=== PATIENT | female | born 1990 | race Caucasian/White ===

== ENCOUNTER → 2017-02-06 | Outpatient (CLI) | payer BC ==
--- NOTE | 2017-02-06 17:18 | US ---
EXAMINATION TYPE: US OB >= 14 wk fetus DATE OF EXAM: 02/06/2017 5:07 PM COMPARISON: None no prior CLINICAL HISTORY: Small for dates O36.5930 TECHNIQUE: Transabdominal (TA) GESTATIONAL AGE / DATING Physician Established: no established Dates by LMP: unsure Dates by First Scan: (37 weeks/2 days) dr manley, [facility] scan 2 weeks ago showed 2 w smaller than EDC EDC: 02/25/2017 Dates by Current Scan: (34 weeks/4 days) EDC: 03/16/2017 SURVEY IUP: Single PLACENTA: Anterior PREVIA: No Previa LEV: 20 cm Normal CERVICAL LENGTH (transabdominal: norm > 3.0cm): 3.7 cm BIOMETRY PRESENTATION: Breech LIE: Longitudinal BPD: 8.6 cm 34 weeks / 6 days HC: 31.2 cm 34 weeks / 6 days AC: 31.4 cm 35 weeks / 2 days FL: 6.8 cm 34 weeks / 5 days ESTIMATED WEIGHT IN GRAMS: 2582 grams ESTIMATED WEIGHT IN LBS/OZS: 5 lbs. 11 oz. WEIGHT PERCENTAGE BASED ON ESTABLISHED DATES: 9.8% HC/AC: 1.0 Normal FL/AC: 21 Normal HEART RATE: 138 bpm RHYTHM: Normal ANATOMY SEEN (within normal limits): Four Chamber Heart Stomach Situs Nose / Lips Diaphragm Kidneys (bilateral) Bladder Cord Insert Three Vessel Cord Longitudinal Spine Transverse Spine Arms (bilateral) Legs (bilateral) anatomy not seen : Pt 35 weeks crowded * Lateral Vent (< 1 cm) * Cisterna Magna (< 1.1 cm) * Nuchal Fold (< 0.6 cm) * Cerebellum (varies with age) Choroid Plexus (bilateral) Midline Falx Cavus Septi Pellucidi Outflow tracts:? LVOT/RVOT TECHNOLOGIST IMPRESSION: viable IUP 34/4 days , dr manley early scan 37/[address] menezes baby has grown since [facility] scan 2weeks ago. he spoke to pt documented in notes IMPRESSION: I have no old exam to compare. The ultrasound gestational age is 34 weeks 4 days and the estimated fe jason weight is 2582 g. I see no complicating process.
== END | disposition home or self-care (01) ==
LOC: RADUSWWP 16:08
PROVIDERS: ATTEND Obstetrics & Gynecology
DX: O36.5930 Maternal care for other known or suspected poor fetal growth, third trimester, not applicable or unspecified (principal); Z3A.34 34 weeks gestation of pregnancy
CPT/HCPCS: 76811

== ENCOUNTER 2017-02-18 05:47 | Inpatient (IN) | payer BC ==
[2017-02-18] MEDS ORDERED: CARBOPROST TROMETHAMINE 250 MCG/ML 1 ML AMP IM PRN (06:02)
[2017-02-18] MEDS ORDERED: TERBUTALINE 1 MG/ML VIAL SQ PRN (06:02)
[2017-02-18] MEDS ORDERED: METHYLERGONOVINE 0.2 MG/ML 1 ML AMP IM PRN (06:02)
[2017-02-18] MEDS ORDERED: LIDOCAINE 1% (PF) 10 MG/ML (30 ML SDV) SQ PRN (06:02)
[2017-02-18] MEDS ORDERED: OXYTOCIN 10 UNIT/ML 1 ML VIAL IM PRN (06:02)
[2017-02-18] MEDS ORDERED: OXYTOCIN 30 UNITS/500 ML NS 30 UNIT in SALINE 1 500ML.BAG IV SCH ×2 (06:02→19:08)
--- NOTE | 2017-02-18 06:10 | P.HPOB ---
History of Present Illness H&P Date: 02/18/17 Chief Complaint: Patient is presenting for induction secondary to small for gestational age This patient is a pleasant 26-year-old 1 para 0 female estimated date of confinement 02/25/2017 estimated gestational age 39-0/7 weeks who presents to labor and delivery for induction of labor secondary to small for gestational age. Patient's had serial ultrasounds and there was concern of growth however she has had interval growth with normal amniotic fluid index. Patient' s had nonstress testing for this reason and is now at 39 weeks and requests induction which I feel is appropriate. Patient's care has otherwise been uncomplicated. Review of Systems Constitutional: Denies chills, Denies fever Ears, nose, mouth and throat: Denies headache, Denies sore throat Cardiovascular: Denies chest pain, Denies shortness of breath Respiratory: Denies cough Gastrointestinal: Reports heartburn Genitourinary: Reports Menstruation: Reports amenorrhea Musculoskeletal: Denies myalgias Integumentary: Denies pruritus, Denies rash Neurological: Denies numbness, Denies weakness Psychiatric: Denies anxiety, Denies depression Endocrine: Denies fatigue, Denies weight change Past Medical History Past Medical History: No Reported History History of Any Multi-Drug Resistant Organisms: None Reported Additional Past Surgical History / Comment(s): [place] tooth extraction Past Anesthesia/Blood Transfusion Reactions: No Reported Reaction Past Psychological History: No Psychological Hx Reported Smoking Status: Never smoker Past Alcohol Use History: None Reported Past Drug Use History: None Reported Medications and Allergies Home Medications Medication Instructions Recorded Confirmed Type Pnv with Ca,No.72/Iron/FA 1 tab PO DAILY 02/18/17 02/18/17 History [ Plus Tablet] Allergies Allergy/AdvReac Type Severity Reaction Status Date / Time No Known Allergies Allergy Verified 02/18/17 06:01 Exam - Vital Signs Vital signs: Intake and Output 02/17/17 02/17/17 02/18/17 14:59 22:59 06:59 Other: Weight 72.575 kg Patient Weight 02/18/17 06:59 Weight 72.575 kg - OBG Physical Exam Abdomen: bowel sounds normal, no diffuse tenderness, no bruit present, no guarding noted, no hepatomegaly, no splenomegaly, no mass Vulva: both: normal Vagina: normal moisture, no discharge Cervix: no lesion (Cervix is 2 cm dilated in the office and soft.), no discharge Uterus: enlarged (Fundal height is 39 cm) Results blood work shows she is O positive, rubella nonimmune, RPR nonreactive , HIV nonreactive, hepatitis B-, Glucola was normal, group B strep was negative , ultrasounds showed growth anywhere from the 11th to the 25th percentile with normal LEV. Assessment and Plan (1) Third trimester Narrative/Plan: This is a pleasant 26-year-old 1 para 0 female 39-0/7 weeks gestation with a small for gestational age fetus who is at 39 weeks requesting induction of labor. Although I do not think there is indications for intrauterine growth restriction I believe is appropriate proceed with delivery at this time. Plan is to proceed with induction of labor and anticipate vaginal delivery. Status: Acute (2) Small for gestational age fetus Status: Acute
[2017-02-18] MEDS: LACTATED RINGERS 1,000 ML IV SCH ×3 (06:18→15:38)
[2017-02-18 06:36] LABS: CH 27.6; CHCM 32.4; HCT 31.6 % (34.0-46.0); HDW 3.59; Hypochromasia Slight; Large Platelets Flag Slight; MCH 27.3 pg (25.0-35.0); MCHC 31.7 g/dL (31.0-37.0); MCV 85.9 fL (80.0-100.0); Mean Platelet Volume 11.7; Poikilocytosis Slight; RBC 3.68 m/uL (3.80-5.40); RDW 15.9 % (11.5-15.5); WBC (Perox) 7.45
[2017-02-18 07:17] LABS: Add Differential Manual Differential
[2017-02-18 07:18] LABS: Manual Review Performed
[2017-02-18] MEDS ORDERED: fentaNYL (PF) 50 MCG/ML 5 ML AMP ONE (10:37)
[2017-02-18] MEDS ORDERED: SODIUM CHLORIDE 0.9% 100 ML BAG ONE (10:37)
[2017-02-18] MEDS ORDERED: BUPIVACAINE (PF) 0.25% 30 ML VIAL ONE (10:37)
[2017-02-18] MEDS ORDERED: diphenhydrAMINE 50 MG/ML 1 ML VIAL IVP PRN (19:08)
[2017-02-18] MEDS ORDERED: diphenhydrAMINE 25 MG CAP PO PRN (19:08)
[2017-02-18] MEDS ORDERED: ZOLPIDEM 5 MG TAB PO PRN (19:08)
[2017-02-18] MEDS ORDERED: ACETAMINOPHEN TAB 325 MG TAB PO PRN (19:08)
[2017-02-18] MEDS ORDERED: Acetaminophen-Codeine 300-30mg TAB PO PRN ×2 (19:08)
[2017-02-18] MEDS ORDERED: WITCH HAZEL 1 EACH MED..PAD TOPICAL PRN (19:08)
[2017-02-18] MEDS ORDERED: MEASLES-MUMPS-RUBELLA VACC/PF 12,500 UNIT/0.5 ML VIAL SQ ONE (19:08)
[2017-02-18] MEDS ORDERED: LANOLIN CREAM 5 GM TUBE TOPICAL PRN (19:08)
[2017-02-18] MEDS ORDERED: SIMETHICONE 80 MG CHEWABLE PO PRN (19:08)
[2017-02-18] MEDS ORDERED: BISACODYL 10 MG SUPP RECTAL PRN (19:08)
[2017-02-18] MEDS ORDERED: BENZOCAINE/MENTHOL SPRAY 1 GM/SPRAY AEROSOL TOPICAL PRN (19:08)
[2017-02-18] MEDS ORDERED: HYDROCORTISONE 2.5% RECTAL CREAM 30 GM TUBE RECTAL PRN (19:08)
--- NOTE | 2017-02-18 19:27 | P.PROBDLV ---
Vaginal Delivery Note - . Vaginal Delivery Note: Normal vaginal delivery viable female Apgars 9 and 9 delivery time is 1851 hrs. Please see dictated H&P for intimate details of this patient's admission. In brief summary this is a pleasant 26-year-old 1 para 0 female estimated gestational age 39 weeks who presented this morning for induction of labor secondary to suspicion of SGA based on ultrasound. Patient is admitted she's to [place] dilated has artificial rupture membranes for clear fluid. Labor is induced with Pitocin and she progresses and does get an epidural for pain control. Patient gets to complete but has no urge to push and therefore the epidural shot off. Approximately 30-45 minutes later the patient does feel the urge to push and begins pushing. Patient pushes the head to the perineum. Posterior perineum is infiltrated with 1% lidocaine and a midline episiotomy is made. At this time and mother pushes the head over the perineum and there is a hand presenting, the right one, with the head. With maternal effort gently she delivers the posterior hand and shoulder and then the anterior shoulder and the rest of this infant's body. This is a vigorous viable female infant Apgars are 9 and 9 delivery time is 1845 hrs. After delivery of the the umbilical cord is doubly clamped and cut and appears to be trivascular. The placenta spontaneously delivered intact. Inspection of the perineum shows bilateral vaginal sulcus tears with avulsion of the vagina in the midline. At this time I placed a sponge and retractor to better visualize the lacerations. I reapproximate both vaginal lacerations with a 3-0 running locked suture. Good reapproximation is noted. Rest of the second-degree laceration is repaired with 3-0 Vicryl running fashion as well. I did have to excise some of the vaginal tissue that was avulsed. Again this was reapproximated as best as possible using 3-0 Vicryl. Final inspection does show good hemostasis and excellent reapproximation. All counts are correct 3. There are no complications other than the sulcus tears. and mother stable delivery room.
[2017-02-18] MEDS: SENNOSIDES-DOCUSATE SODIUM 1 EACH TAB PO SCH (20:52)
[2017-02-19] MEDS: IBUPROFEN 600 MG TAB PO PRN ×3 (00:16→19:25)
--- NOTE | 2017-02-19 07:16 | P.PNOBGVD ---
Subjective - Subjective Patient reports: Reports appetite normal, Reports voiding normally, Reports pain well controlled, Reports ambulating normally : doing well Objective - Latest Vital Signs Latest vital signs: Vital Signs Temp Pulse Resp BP Pulse Ox 02/19/17 04:00 98.1 F 74 18 105/64 100 02/19/17 00:00 98.5 F 96 17 115/74 98 02/18/17 21:13 99.0 F 104 H 16 111/60 02/18/17 20:43 99.2 F 104 H 16 102/60 02/18/17 20:13 104 H 111/60 02/18/17 19:58 98.9 F 111 H 16 119/65 02/18/17 19:43 102 H 16 111/58 02/18/17 19:28 109 H 16 119/68 02/18/17 19:13 99.8 F H 116 H 16 131/70 Intake and Output 02/18/17 02/19/17 02/19/17 22:59 06:59 14:59 Intake Total 1050 Balance 1050 Intake: IV 600 Lactated Ringers 1,000 ml 600 @ 125 mls/hr IV .Q8H LULU Rx#:[id number] Intake, IV Titration 450 Amount Oxytocin 30 Units/500 ml 450 Ns 30 unit In Saline 1 500ml.bag @ 120 MILLIUNIT /MIN 120 mls/hr IV . Q4H10M LULU Rx#:[id number] Other: # Voids 1 1 - Exam Lungs: bilateral: normal Chest: Normal S1, Normal S2 Extremities: Present: normal Abdomen: Present: normal appearance, soft Uterus: Present: normal, firm - Labs Labs: Abnormal Lab Results - Last 24 Hours (Table) 02/18/17 Range/Units 06:22 RBC 3.68 L (3.80-5.40) m/uL Hgb 10.0 L (11.4-16.0) gm/dL Hct 31.6 L (34.0-46.0) % RDW 15.9 H (11.5-15.5) % Assessment and Plan (1) Third trimester Narrative/Plan: day 1. Patient is resting without new complaints. Vital signs are stable she is afebrile, her uterus is firm nontender she's having normal lochia. My impression this is a normal course. Plan is to continue routine care discharge home tomorrow. Current Visit: Yes Status: Acute Code(s): Z33.1 - STATE, INCIDENTAL SNOMED Code(s): 71695704 (2) Small for gestational age fetus Current Visit: Yes Status: Acute Code(s): NNX5145 - SNOMED Code(s): 897070003
[2017-02-19] MEDS: SENNOSIDES-DOCUSATE SODIUM 1 EACH TAB PO SCH ×2 (09:25→19:25)
--- NOTE | 2017-02-20 05:59 | P.PNOBGVD ---
Subjective - Subjective Patient reports: Reports appetite normal, Reports voiding normally, Reports pain well controlled, Reports ambulating normally : doing well Objective - Latest Vital Signs Latest vital signs: Vital Signs Temp Pulse Resp BP Pulse Ox 02/20/17 04:00 98.3 F 80 16 108/65 100 02/19/17 20:00 97.3 F L 87 17 115/74 99 02/19/17 16:00 98.1 F 79 16 100/61 02/19/17 12:00 98.1 F 82 16 108/61 98 02/19/17 08:00 98.2 F 78 14 114/55 100 Intake and Output 02/19/17 02/19/17 02/20/17 14:59 22:59 06:59 Intake Total 600 Balance 600 Intake: Oral 600 Other: # Voids 3 # Bowel Movements 0 - Exam Lungs: bilateral: normal Chest: Normal S1, Normal S2 Extremities: Present: normal Abdomen: Present: normal appearance, soft Uterus: Present: normal, firm Assessment and Plan (1) Third trimester Narrative/Plan: day #2. Patient is resting without complaints. She wishes to go home. Vital signs are stable she is afebrile. Uterus is firm nontender she's having normal lochia. My impression is this is a normal course. Plan is to continue routine care and discharge home today. Current Visit: Yes Status: Acute Code(s): Z33.1 - STATE, INCIDENTAL SNOMED Code(s): 52027967 (2) Small for gestational age fetus Current Visit: Yes Status: Acute Code(s): HAY0185 - SNOMED Code(s): 821030990
--- NOTE | 2017-02-20 06:05 | P.DS ---
Providers Date of admission: 02/18/17 05:47 Expected date of discharge: 02/20/17 Attending physician: Jemal Galeano Primary care physician: Stated None - Discharge Diagnosis(es) (1) Third trimester Current Visit: Yes Status: Acute (2) Small for gestational age fetus Current Visit: Yes Status: Acute Hospital Course: Please see dictated H&P for intimate details of this patient's admission. Brief summary this is a pleasant 26-year-old 1 para 0 female 39 weeks who is admitted to labor and delivery for concerns a small for gestational age an induction of labor. Patient is admitted she is uncomplicated induction of labor was on have a vaginal delivery viable female . Please see dictated delivery note. day #1 patient is doing well and by 2 she continues to well was thought to be stable for discharge home follow up with me in 6 weeks. Procedures: Normal vaginal delivery Patient Condition at Discharge: Good Plan - Discharge Summary New Discharge Prescriptions: Acetaminophen-Codeine 300-30mg [Tylenol w/codeine #3] 1 - 2 each PO Q4HR PRN # 30 tab PRN Reason: Mild Pain exceeding Tylenol Ibuprofen [Motrin] 600 mg PO Q6HR PRN #40 tab PRN Reason: Mild Pain Or Fever >= 100.5 Discharge Medication List Pnv with Ca,No.72/Iron/FA [ Plus Tablet] 1 tab PO DAILY 02/18/17 [ History] Acetaminophen-Codeine 300-30mg [Tylenol w/codeine #3] 1 - 2 each PO Q4HR PRN # 30 tab 02/20/17 [Rx] Ibuprofen [Motrin] 600 mg PO Q6HR PRN #40 tab 02/20/17 [Rx] Follow up Appointment(s)/Referral(s): Jemal Galeano MD [STAFF PHYSICIAN] - 6 Weeks Patient Instructions/Handouts: Vaginal Delivery (DC) Activity/Diet/Wound Care/Special Instructions: No intercourse or anything per vagina for 6 weeks. Please call if any fever, chills, excessive vaginal bleeding, and/or abdominal pain. Discharge Disposition: HOME SELF-CARE
[2017-02-20 08:24] VITALS: BP 103/65; PULSE 81; RESP 18; TEMP 98.1
[2017-02-20] MEDS: IBUPROFEN 600 MG TAB PO PRN (08:55)
[2017-02-20] MEDS: SENNOSIDES-DOCUSATE SODIUM 1 EACH TAB PO SCH (08:56)
== END 2017-02-20 09:00 | disposition home or self-care (01) | DRG 775 ==
LOC: 4FBP 05:47
PROVIDERS: ADMIT Obstetrics & Gynecology; ATTEND Obstetrics & Gynecology
PROC: 3E0R3CZ (ICD-10-PCS; principal; 2017-02-18)
PROC: 3E033VJ Introduction of Other Hormone into Peripheral Vein, Percutaneous Approach (ICD-10-PCS; principal; 2017-02-18)
PROC: 00HU33Z Insertion of Infusion Device into Spinal Canal, Percutaneous Approach (ICD-10-PCS; principal; 2017-02-18)
PROC: 10907ZC Drainage of Amniotic Fluid, Therapeutic from Products of Conception, Via Natural or Artificial Opening (ICD-10-PCS; principal; 2017-02-18)
PROC: 0W8NXZZ Division of Female Perineum, External Approach (ICD-10-PCS; principal; 2017-02-18)
PROC: 10E0XZZ Delivery of Products of Conception, External Approach (ICD-10-PCS; principal; 2017-02-18)
DX: O36.5930 Maternal care for other known or suspected poor fetal growth, third trimester, not applicable or unspecified (principal); O70.1 Second degree perineal laceration during delivery; Z37.0 Single live birth; Z3A.39 39 weeks gestation of pregnancy
CPT/HCPCS: 85025; 88307

== ENCOUNTER → 2020-07-20 | Outpatient (CLI) | payer OTHER ==
[2020-07-20 10:30] LABS: HCT 30.7 % (34.0-46.0); HGB 10.1 gm/dL (11.4-16.0); Hypochromasia Slight; MCH 30.5 pg (25.0-35.0); MCHC 32.9 g/dL (31.0-37.0); MCV 92.7 fL (80.0-100.0); Mean Platelet Volume 8.2; Platelet Count 213 k/uL (150-450); RBC 3.32 m/uL (3.80-5.40); RDW 14.3 % (11.5-15.5); WBC 7.1 k/uL (3.8-10.6)
== END | disposition home or self-care (01) ==
LOC: LABWHC1 08:41
PROVIDERS: ATTEND Obstetrics & Gynecology
DX: Z34.82 Encounter for supervision of other normal pregnancy, second trimester (principal); Z3A.00 Weeks of gestation of pregnancy not specified
CPT/HCPCS: 36415; 82950; 85027

== ENCOUNTER → 2020-07-24 | Outpatient (CLI) | payer OTHER ==
[2020-07-24 12:07] LABS: Glucose 3 Hour, Gest 115 mg/dL
== END | disposition home or self-care (01) ==
LOC: LABWHC1 07:35
PROVIDERS: ATTEND Obstetrics & Gynecology
DX: O24.419 Gestational diabetes mellitus in pregnancy, unspecified control (principal); Z3A.00 Weeks of gestation of pregnancy not specified
CPT/HCPCS: 36415; 82951; 82952

== ENCOUNTER 2020-10-29 14:03 | Inpatient (IN) | payer OTHER ==
[2020-10-29] MEDS ORDERED: LIDOCAINE 0.5% (PF) 5 MG/ML (50 ML SDV) SQ PRN (14:45)
[2020-10-29] MEDS ORDERED: METHYLERGONOVINE 0.2 MG/ML 1 ML AMP IM PRN (14:45)
[2020-10-29] MEDS ORDERED: TERBUTALINE 1 MG/ML VIAL SQ PRN (14:45)
[2020-10-29] MEDS ORDERED: OXYTOCIN 10 UNIT/ML 1 ML VIAL IM PRN (14:45)
[2020-10-29] MEDS ORDERED: CARBOPROST TROMETHAMINE 250 MCG/ML 1 ML AMP IM PRN (14:45)
--- NOTE | 2020-10-29 15:03 | P.HPOB ---
History of Present Illness H&P Date: 10/29/20 Chief Complaint: Contractions This is a 30-year-old female 2 para 1 with an estimated date of confinement of 10/30/2020, estimated gestational age of 39-6/7 weeks, who presents to labor and delivery with complaints of contractions that began earlier today and became stronger and more regular. She denies any rupture membranes. care has been with Dr. Galeano and has been uncomplicated per patient. labs: Pap smear-within normal limits GC/chlamydia/Trichomonas-negative Hepatitis B surface antigen-negative RPR-nonreactive Rubella-nonimmune Blood type-O+ Antibody screen-negative HIV-nonreactive Hemoglobin-12.1 Random glucose-83 Obstetrical ultrasound-normal anatomy One hour Glucola-142, 3 hour Glucola-within normal limits Group B streptococcus-negative Obstetrical history: . History of 1 vaginal delivery at term with no complications Review of Systems Constitutional: Denies chills, Denies fever Eyes: denies blurred vision, denies pain Ears, nose, mouth and throat: Denies headache, Denies sore throat Cardiovascular: Denies chest pain, Denies shortness of breath Respiratory: Denies cough Gastrointestinal: Reports abdominal pain (Contractions) Genitourinary: Reports pelvic pain Musculoskeletal: Reports low back pain Integumentary: Denies pruritus, Denies rash Neurological: Denies numbness, Denies weakness Psychiatric: Denies anxiety, Denies depression Past Medical History Past Medical History: No Reported History History of Any Multi-Drug Resistant Organisms: None Reported Additional Past Surgical History / Comment(s): [place] tooth extraction Past Anesthesia/Blood Transfusion Reactions: No Reported Reaction Past Psychological History: No Psychological Hx Reported Smoking Status: Never smoker Past Alcohol Use History: None Reported Past Drug Use History: None Reported - Past Family History Father Family Medical History: Hypertension Medications and Allergies Home Medications Medication Instructions Recorded Confirmed Type Pnv,Calcium 72/Iron/Folic Acid 1 tab PO DAILY 02/18/17 02/18/17 History [ Plus Tablet] Allergies Allergy/AdvReac Type Severity Reaction Status Date / Time No Known Allergies Allergy Verified 02/18/17 06:01 Exam Osteopathic Statement: *. No significant issues noted on an osteopathic structural exam other than those noted in the History and Physical/Consult. Intake and Output 10/28/20 10/29/20 10/29/20 22:59 06:59 14:59 Other: Weight 72.575 kg HEENT: Within normal limits Heart: Regular rate and rhythm Lungs: Clear to auscultation bilaterally Abdomen: , nontender Cervix: 6-1/2 cm/90%/-2 station Heart tones: Category 1 Contractions: Every 2-3 minutes Extremities: Negative Homans Assessment and Plan (1) 39 weeks gestation of Current Visit: Yes Status: Acute Code(s): Z3A.39 - 39 WEEKS GESTATION OF SNOMED Code(s): 44786593 Plan: Admission for active labor. Epidural anesthesia if desired. Expectant management.
--- NOTE | 2020-10-29 15:03 | P.MSEPDOC ---
Presenting Problems - Arrival Data Date of Arrival on Unit: 10/29/20 Time of Arrival on Unit: 14:30 Mode of Transport: Ambulatory Vital Signs - Temperature Temperature: 97.8 F Temperature Source: Temporal Artery Scan - Respirations Respiratory Rate: 16 Oxygen Delivery Method: Room Air Disposition - Disposition OB Disposition: Admit I agree with the RN Medical Screening Exam: Yes Risk & Benefit of care provided described in d/c instruction: Yes Diagnosis: ENCOUNTER FOR FULL-TERM UNCOMPLICATED DELIVERY
[2020-10-29] MEDS: LACTATED RINGERS 1,000 ML IV SCH ×2 (15:06→16:15)
[2020-10-29] MEDS ORDERED: ROPIVACAINE 5MG/ML 20ML VIAL ONE (15:11)
[2020-10-29] MEDS ORDERED: fentaNYL (PF) 50 MCG/ML 5 ML AMP ONE (15:11)
[2020-10-29] MEDS ORDERED: SODIUM CHLORIDE 0.9% 100 ML BAG ONE (15:11)
[2020-10-29] MEDS ORDERED: ROPIVACAINE 100 MG, fentaNYL (PF) 200 MCG in SODIUM CHLORIDE 0.9% 76 ML EPIDURAL ONE (15:34)
[2020-10-29 15:51] LABS: Anisocytosis Slight; Basophils % (A) 0 %; Eosinophils % (A) 0 %; HCT 31.9 % (34.0-46.0); Hypochromasia Marked; Lymphocytes # (A) 2.2 k/uL (1.0-4.8); Lymphocytes % (A) 25 %; MCH 25.6 pg (25.0-35.0); MCHC 31.3 g/dL (31.0-37.0); MCV 81.8 fL (80.0-100.0); Mean Platelet Volume 11.5; Monocytes # (A) 0.4 k/uL (0-1.0); Monocytes % (A) 4 %; Neutrophils # (A) 6.3 k/uL (1.3-7.7); Platelet Count 214 k/uL (150-450); Poikilocytosis Slight; RDW 16.1 % (11.5-15.5); WBC 9.1 k/uL (3.8-10.6)
--- NOTE | 2020-10-29 20:58 | P.PROBDLV ---
Vaginal Delivery Note - . Vaginal Delivery Note: The patient regressed to complete dilation after artificial rupture membranes with clear fluid noted and epidural. Once reaching complete, she began pushing. She pushed for approximately an hour and a half and infant's head came to a crown. With one further push, the 's head delivered across the perineum followed by the anterior shoulder. Nose and mouth were bulb suctioned at the perineum. With one further push, the remainder the easily delivered and was placed on mother's abdomen. Cord was clamped and cut and was taken to warmer for evaluation. A viable female infant was noted with scores of 9 at 1 minute and 9 at 5 minutes and infant weight was 8 lbs. 7 oz. Placenta delivered shortly thereafter, intact, with a three-vessel cord. Uterus contracted fairly well after oxytocin was given and uterine massage was carried out. A gloved hand was placed within the uterine cavity to remove a few clots but no further tissue was obtained. Next inspection of the perineum revealed a small second-degree perineal laceration and a right periurethral laceration. These areas were anesthetized with 1% lidocaine and then sutured with 3-0 Vicryl suture in the usual fashion. Estimated blood loss is approximately 200 mL's. Both mother and infant are in stable condition.
[2020-10-29] MEDS ORDERED: IBUPROFEN 600 MG TAB PO PRN (21:10)
[2020-10-29] MEDS ORDERED: SIMETHICONE 80 MG CHEWABLE PO PRN (21:10)
[2020-10-29] MEDS ORDERED: OXYTOCIN 20 UNITS/1000 ML NS 1,000 ML IV SCH (21:10)
[2020-10-29] MEDS ORDERED: LANOLIN CREAM 5 GM TUBE TOPICAL PRN (21:10)
[2020-10-29] MEDS ORDERED: diphenhydrAMINE 25 MG CAP PO PRN (21:10)
[2020-10-29] MEDS ORDERED: ZOLPIDEM 5 MG TAB PO PRN (21:10)
[2020-10-29] MEDS ORDERED: diphenhydrAMINE 50 MG/ML 1 ML VIAL IVP PRN ×2 (21:10)
[2020-10-29] MEDS ORDERED: HYDROCORTISONE 2.5% RECTAL CREAM 30 GM TUBE RECTAL PRN (21:10)
[2020-10-29] MEDS ORDERED: diphenhydrAMINE 50 MG CAP PO PRN (21:10)
[2020-10-29] MEDS ORDERED: ACETAMINOPHEN TAB 325 MG TAB PO PRN (21:10)
[2020-10-29] MEDS ORDERED: BENZOCAINE/MENTHOL SPRAY 1 GM/SPRAY AEROSOL TOPICAL PRN (21:10)
[2020-10-29] MEDS: SENNOSIDES-DOCUSATE SODIUM 1 EACH TAB PO SCH (21:55)
[2020-10-30 05:12] VITALS: RESP 16
--- NOTE | 2020-10-30 05:55 | P.PNOBGVD ---
Subjective - Subjective Patient reports: Reports appetite normal, Reports voiding normally, Reports pain well controlled, Reports ambulating normally : doing well Objective - Latest Vital Signs Latest vital signs: Vital Signs Temp Pulse Resp BP Pulse Ox 10/30/20 04:00 98.6 F 99 16 121/78 97 10/30/20 00:00 98.8 F 86 15 117/71 98 10/29/20 22:45 98.3 F 96 16 103/63 10/29/20 22:15 98.5 F 86 16 107/68 10/29/20 21:45 98.6 F 107 H 16 97/64 10/29/20 21:30 99.1 F 120 H 16 105/65 98 10/29/20 21:15 98.5 F 110 H 16 112/58 10/29/20 21:00 97.6 F 109 H 16 131/73 10/29/20 20:45 110 H 16 114/53 10/29/20 15:03 97.8 F 16 10/29/20 14:44 97.8 F 100 16 118/74 10/29/20 14:08 97.9 F 100 14 118/74 Intake and Output 10/29/20 10/29/20 10/30/20 14:59 22:59 06:59 Output Total 200 Balance -200 Output: Estimated Blood Loss 200 Other: # Voids 1 0 Weight 72.575 kg - Exam Lungs: bilateral: normal Chest: Normal S1, Normal S2 Extremities: Present: normal Abdomen: Present: normal appearance, soft Uterus: Present: normal, firm - Labs Labs: Abnormal Lab Results - Last 24 Hours (Table) 10/29/20 Range/Units 14:48 Hgb 10.0 L (11.4-16.0) gm/dL Hct 31.9 L (34.0-46.0) % RDW 16.1 H (11.5-15.5) % Assessment and Plan Assessment: day #1. Patient is resting without complaints and wishes to go home. Vital signs are stable she's afebrile. Uterus is firm nontender and she is having normal lochia. My impression this is a normal course. Plan is to continue routine care discharge home later today. (1) Normal vaginal delivery Current Visit: Yes Status: Acute Code(s): O80 - ENCOUNTER FOR FULL-TERM UNCOMPLICATED DELIVERY SNOMED Code(s): 37347489
--- NOTE | 2020-10-30 05:58 | P.DS ---
Providers Date of admission: 10/29/20 14:34 Expected date of discharge: 10/30/20 Attending physician: Jemal Galeano Primary care physician: Stated None - Discharge Diagnosis(es) (1) Normal vaginal delivery Current Visit: Yes Status: Acute Hospital Course: Please see dictated H&P by Dr. Cooper on this patient's admission. Brief summary this is a pleasant 30-year-old 2 para 1 female 39-6/7 weeks gestation admitted to labor and delivery in active labor. Patient quickly goes on have a vaginal delivery viable female . Please see dictated delivery note. day #1 patient without complaints wishes to go home. Patient's felt be stable for discharge home follow up with me in 6 weeks. Procedures: Normal spontaneous vaginal delivery Patient Condition at Discharge: Good Plan - Discharge Summary New Discharge Prescriptions: New Ibuprofen [Motrin] 600 mg PO Q6HR PRN #30 tab PRN Reason: Mild Pain Or Fever >= 100.5 No Action Pnv,Calcium 72/Iron/Folic Acid [ Plus Tablet] 1 tab PO DAILY Discharge Medication List Pnv,Calcium 72/Iron/Folic Acid [ Plus Tablet] 1 tab PO DAILY 02/18/17 [History] Ibuprofen [Motrin] 600 mg PO Q6HR PRN #30 tab 10/30/20 [Rx] Follow up Appointment(s)/Referral(s): Jemal Galeano MD [STAFF PHYSICIAN] - 6 Weeks Patient Instructions/Handouts: Vaginal Delivery (DC) Activity/Diet/Wound Care/Special Instructions: No intercourse or anything per vagina for 6 weeks. Please call if any fever, chills, excessive vaginal bleeding, and/or abdominal pain. Discharge Disposition: HOME SELF-CARE
[2020-10-30 08:07] LABS: Anisocytosis Slight; Basophils % (A) 0 %; Eosinophils # (A) 0.1 k/uL (0-0.7); Eosinophils % (A) 0 %; HCT 24.1 % (34.0-46.0); Hypochromasia Moderate; Lymphocytes # (A) 2.4 k/uL (1.0-4.8); Lymphocytes % (A) 21 %; MCH 25.1 pg (25.0-35.0); MCHC 30.7 g/dL (31.0-37.0); MCV 81.8 fL (80.0-100.0); Mean Platelet Volume 10.7; Monocytes # (A) 0.5 k/uL (0-1.0); Monocytes % (A) 4 %; Neutrophils # (A) 8.6 k/uL (1.3-7.7); Neutrophils % (A) 74 %; Platelet Count 184 k/uL (150-450); Poikilocytosis Slight; RBC 2.94 m/uL (3.80-5.40); RDW 16.5 % (11.5-15.5); WBC 11.7 k/uL (3.8-10.6)
[2020-10-30] MEDS: SENNOSIDES-DOCUSATE SODIUM 1 EACH TAB PO SCH ×2 (08:24→20:41)
[2020-10-30 08:33] LABS: HGB 7.4 gm/dL (11.4-16.0)
[2020-10-30 15:33] VITALS: BP 95/43; PULSE 81; TEMP 98.3
== END 2020-10-30 21:45 | disposition home or self-care (01) | DRG 807 ==
LOC: FBPOP 14:03 → 4FBP 14:34
PROVIDERS: ADMIT Obstetrics & Gynecology; ATTEND Obstetrics & Gynecology
PROC: 0KQM0ZZ Repair Perineum Muscle, Open Approach (ICD-10-PCS; principal; 2020-10-29)
PROC: 10E0XZZ Delivery of Products of Conception, External Approach (ICD-10-PCS; principal; 2020-10-29)
DX: O70.1 Second degree perineal laceration during delivery (principal); Z37.0 Single live birth; Z3A.39 39 weeks gestation of pregnancy; Z82.49 Family history of ischemic heart disease and other diseases of the circulatory system
CPT/HCPCS: 59025; 84112; 85025; 86850; 86900; 86901; 99213